=== PATIENT | female | born 2000 | race Caucasian/White ===

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

== ENCOUNTER 2019-07-05 01:18 | Emergency (ER) | payer OTHER ==
--- NOTE | 2019-07-05 02:15 | ED ---
Head Injury - HPI Summary HPI Summary: The patient is a 18 y/o F presenting to [facility] accompanied by friend with a chief complaint of left parietal scalp laceration tonight. She states that she had been on a porch outside and ran into an awning due to her height, causing the laceration. She denies any LOC, AMS, JAMES, nausea, or vomiting. The dull pain is currently rated 2/10 in severity. She has not used medications [facility]. No PMHx. Nonsmoker, rare EtOH, no substance use. Medications and allergies reviewed. - History Of Current Complaint Chief Complaint: EDHeadInjury Stated Complaint: HEAD LAC PER PT Time Seen by Provider: 07/05/19 02:06 Hx Obtained From: Patient Mechanism Of Injury: Direct Blow - hit head on porch awning Onset/Duration: Started Minutes Ago, Still Present Onset of Pain: Immediate Severity Currently: Mild Severity Initially: Mild Pain Intensity: 2 Pain Scale Used: 0-10 Numeric Location of Head Injury: Parietal - left Character: Dull Aggravating Factor(s): Other: - nothing Alleviating Factor(s): Other: - nothing Associated Signs And Symptoms: Other: - Positive: laceration to left parietal scalp. Negative: LOC, AMS, JAMES, nausea, vomiting - Allergies/Home Medications Allergies/Adverse Reactions: Allergies Allergy/AdvReac Type Severity Reaction Status Date / Time No Known Allergies Allergy Verified 07/05/19 01:53 Home Medications: Home Medications NK [No Home Medications Reported] 07/05/19 [History Confirmed 07/05/19] PMH/Surg Hx/FS Hx/Imm Hx Endocrine/Hematology History: Denies: Hx Diabetes Cardiovascular History: Denies: Hx Hypertension Sensory History: Denies: Hx Legally Blind EENT History: Denies: Hx Deafness - Surgical History Surgical History: None Surgery Procedure, Year, and Place: none - Immunization History Immunizations Up to Date: Yes Infectious Disease History: No Infectious Disease History: Denies: Traveled Outside the [place] in Last 30 Days - Family History Known Family History: Negative: Diabetes - Social History Alcohol Use: Rare Hx Substance Use: No Substance Use Type: Reports: None Hx Tobacco Use: No Smoking Status (MU): Never Smoked Tobacco Review of Systems Negative: Vomiting, Nausea Positive: Other - laceration to the left parietal scalp Neurological: Other - Negative: LOC, AMS Negative: Headache All Other Systems Reviewed And Are Negative: Yes Physical Exam - Summary Physical Exam Summary: Appearance: Well-appearing, Well-nourished, lying in bed comfortable Skin: 4cm laceration to the scalp at the vertex, Warm, dry, no obvious rash Eyes: sclera anicteric, no conjunctival pallor ENT: mucous membranes moist Neck: deferred Respiratory: No signs of respiratory distress Cardiovascular: Appears well perfused, pulses are nml Abdomen: deferred Musculoskeletal: Moving all 4 extremities without obvious discomfort Neurological: Awake and alert, mentation is normal, speech is fluent and appropriate Psychiatric: affect is normal, does not appear anxious or depressed Triage Information Reviewed: Yes Vital Signs On Initial Exam: Initial Vitals Temp Pulse Resp BP Pulse Ox 98.6 F 49 15 112/72 98 07/05/19 01:19 07/05/19 01:19 07/05/19 01:19 07/05/19 01:19 07/05/19 01:19 Vital Signs Reviewed: Yes Procedures - Laceration/Wound Repair 1 Location: head - vertex of scalp Description: Linear Length, Depth and Shape: 4cm Closure: [place] #__ - 4 Diagnostics - Vital Signs Vital Signs Temp Pulse Resp BP Pulse Ox 07/05/19 01:19 98.6 F 49 15 112/72 98 - Laboratory Lab Statement: Any lab studies that have been ordered have been reviewed, and results considered in the medical decision making process. Re-Evaluation - Re-Evaluation First Eval Re-Evaluation Time: 02:10 Comment: Staple procedure performed (see note). Head Injury Course/Dx Course Of Treatment: Patient is a 18 y/o F with cc of left parietal head laceration following hitting head on a porch awning tonight as she walked into it on accident without any LOC, AMS, JAMES, nausea, or vomiting. Upon physical exam , the patient exhibits a 4cm laceration to the vertex of the scalp. Four Ivory were used to close the laceration without anesthetics. She is diagnosed with scalp laceration and is given instructions for staple removal at [facility] in one week. She understands and agrees with this plan. - Diagnoses Provider Diagnoses: Scalp laceration Discharge ED - Sign-Out/Discharge Documenting (check all that apply): Patient Departure - Patient will be discharged home. Patient Received Moderate/Deep Sedation with Procedure: No - Discharge Plan Condition: Improved Disposition: HOME Patient Education Materials: Laceration (ED), Staple Care (ED) Referrals: [facility] [Primary Care Provider] - Additional Instructions: Ivory need to be removed in about a week, [facility] can do it or you can use the staple removal tool if you have a friend who is comfortable with that. - Billing Disposition and Condition Condition: IMPROVED Disposition: Home - Attestation Statements Document Initiated by Paige: Yes Documenting Scribe: Nayely Judd Provider For Whom Paige is Documenting (Include Credential): Dr. Talat Otero MD Scribe Attestation: Nayely Haque scribed for Dr. Talat Otero MD on 07/05/19 at 0546. Scribe Documentation Reviewed: Yes Provider Attestation: The documentation as recorded by the Nayely navarro accurately reflects the service I personally performed and the decisions made by me, Dr. Talat Otero MD Status of Scribe Document: Viewed
[2019-07-05 02:33] VITALS: BP 103/72
== END 2019-07-05 02:33 | disposition home or self-care (01) ==
LOC: ED 01:18
DX: S01.01XA Laceration without foreign body of scalp, initial encounter (principal); W22.8XXA Striking against or struck by other objects, initial encounter; Y92.008 Other place in unspecified non-institutional (private) residence as the place of occurrence of the external cause
CPT/HCPCS: 12002; 99282